=== PATIENT | female | born 1975 | race Two or more races ===

== ENCOUNTER 2019-04-30 12:21 | Inpatient (IN) | payer OTHER | END 2019-05-14 09:14 | disposition home or self-care (01) | LOC: Y3E 05-07 18:27 → YASAS 12:21 → Y3E 19:47 ==

== ENCOUNTER 2019-07-31 14:28 | Inpatient (IN) | payer OTHER ==
[2019-07-31 16:49] VITALS: BMI 19.5
--- NOTE | 2019-07-31 19:22 | HP ---
CIWA Score Nausea/Vomitin-No Nausea/No Vomiting Muscle Tremors: 3 Anxiety: 3 Agitation: 4-Moderately Restless Paroxysmal Sweats: 3 (Increased facial moisture) Orientation: 1-Uncertain about Date Tacttile Disturbances: 0-None Auditory Disturbances: 0-None Visual Disturbances: 0-None Headache: 0-None Present CIWA-Ar Total Score: 14 - Admission Criteria OASAS Guidelines: Admission for Medically Managed Detox: Requires at least one of the followin. CIWA greater than 12 2. Seizures within the past 24 hours 3. Delirium tremens within the past 24 hours 4. Hallucinations within the past 24 hours 5. Acute intervention needed for co occurring medical disorder 6. Acute intervention needed for co occurring psychiatric disorder 7. Severe withdrawal that cannot be handled at a lower level of care (continued vomiting, continued diarrhea, abnormal vital signs) requiring intravenous medication and/or fluids 8. Patient presents the following: CIWA greater than 12 (TEDDY: 0.190) Admission Criteria Met: Admission criteria met Admitting History and Physical - Past Medical History ...LMP: 02/16/19 - Smoking History Smoking history: Current every day smoker Have you smoked in the past 12 months: Yes Aproximately how many cigarettes per day: 20 - Alcohol/Substance Use Hx Alcohol Use: Yes Admission ROS S - HPI Chief Complaint: Here for alcohol problems. Allergies/Adverse Reactions: Allergies Allergy/AdvReac Type Severity Reaction Status Date / Time No Known Allergies Allergy Verified 04/30/19 16:37 History of Present Illness: Alcohol use since age 22. States drinking decreased to 2 pints/day. Last drink 2 -3 hours ago. Opiate use since age 23. Was using IV. Started Suboxone 8 mg TID on 07/17/19 and states has remained sober Has a Narcan Kit at home. Cocaine last used 07/17/19 K2 use began at age 35. Last use 07/30/19 Nicotine use since age 13. Now down to 2 cig/day. TEDDY: 0.190 UTox: + BUP HCG: Neg EK04/30/19: PMHx:Weight loss, hx CHF w/ coma (March -April 2018); Pneumonia 2 months ago @ [facility]. MHHx: Insomnia, Bipolar, depression, schizophrenia. Denies thoughts of harming self or others. States taking Gabapentin, Depakote, Seroquel (Last took meds in June 2019) Longest length of sobriety while in-patient for 2 months. Multiple overdoses. Last August 11, 2019. Seizures r/t alcohol withdrawal. Frequent blackouts. Patient Name: Sari Aragon Date: 1975 Address: [address] [place], [place] [id number] Sex: Female Rx Written Rx Dispensed Drug Quantity Days Supply Prescriber Name 07/27/2019 07/28/2019 buprenorphine-naloxone 8-2 mg sl film 21 7 Padilla Manzo MD 07/17/2019 07/19/2019 buprenorphine-naloxone 8-2 mg sl film 21 7 Padilla Manzo MD Exam Limitations: No Limitations - Ebola screening Have you traveled outside of the country in the last 21 days: No (N) Have you had contact with anyone from an Ebola affected area: No Have you been sick,other than usual withdrawal symptoms: No Do you have a fever: No - Review of Systems Constitutional: Diaphoresis, Changes in sleep (Difficulty falling and staying asleep.), Unintentional Wgt. Loss EENT: reports: Blurred Vision, Dental Problems (Missing most teeth. Can chew and swallow ok.) Respiratory: reports: Cough Cardiac: reports: No Symptoms Reported GI: reports: Indigestion (Heart burn) : reports: No Symptoms Reported Musculoskeletal: reports: No Symptoms Reported Integumentary: reports: Lesions (Scabs on knees), Other (Bump (R) head w/ tenderness x 2 days) Neuro: reports: No Symptoms reported Endocrine: reports: Increased Thirst, Change in Weight Hematology: reports: No Symptoms Reported Psychiatric: reports: Orientated x3 (Knows month and year. unsure of exact date) , Agitated, Anxious, Depressed (Denies thoughts of harming self or others) Patient History - Patient Medical History Hx Anemia: No Hx Asthma: Yes (on albuerol inhaler) Hx Chronic Obstructive Pulmonary Disease (COPD): No Hx Cancer: No Hx Cardiac Disorders: No Hx Congestive Heart Failure: No Hx Hypertension: No Hx Hypercholesterolemia: Yes (no med) Hx Pacemaker: No HX Cerebrovascular Accident: No Hx Seizures: No Hx Dementia: No Hx Diabetes: No Hx Gastrointestinal Disorders: No Hx Liver Disease: No Hx Genitourinary Disorders: No Hx Sexually Transmitted Disorders: No Hx Renal Disease (ESRD): No Hx Thyroid Disease: No Hx Human Immunodeficiency Virus (HIV): No Hx Hepatitis C: No Hx Depression: Yes Hx Suicide Attempt: Yes (cut wrist) Hx Bipolar Disorder: No Hx Schizophrenia: No - Patient Surgical History Past Surgical History: Yes Hx Orthopedic Surgery: Yes (surgery for fx of hemerous right) Anesthesia Reaction: No - PPD History Previous Implant?: Yes Documented Results: Negative w/proof Implanted On Prior R Admission?: Yes Date: 04/24/19 PPD to be Administered?: No - Reproductive History Patient is a Female of Child Bearing Age (11 -55 yrs old): Yes Last Menstrual Period: 02/16/19 (Irregular) Patient : No - Smoking Cessation Smoking history: Current every day smoker Have you smoked in the past 12 months: Yes Aproximately how many cigarettes per day: 2 (Has decreased amount) Cigars Per Day: 0 Hx Chewing Tobacco Use: No Initiated information on smoking cessation: Yes 'Breaking Loose' booklet given: 07/31/19 - Substance & Tx. History Hx Alcohol Use: Yes Hx Substance Use: Yes Substance Use Type: Alcohol, Cocaine, Heroin, Marijuana (K2), Opiates Hx Substance Use Treatment: Yes (detox, rehab, Currently on Suboxone) - Substances abused Heroin Substance route: Injection Frequency: Daily Amount used: 8 bags Age of first use: 23 Date of last use: 07/17/19 Alcohol Substance route: Oral Frequency: Daily Amount used: liquor- 3 pints Age of first use: 27 Date of last use: 07/31/19 Cocaine Substance route: Injection Frequency: Daily Amount used: 2 bags Age of first use: 14 Date of last use: 07/17/19 K2/Spice Substance route: Smoking Frequency: Daily Amount used: 1 bags Age of first use: 35 Date of last use: 07/31/19 Admission Physical Exam BHS - Vital Signs Vital Signs: Vital Signs - 24 hr 07/31/19 16:44 Temperature 98.8 F Pulse Rate 101 H Respiratory 18 Rate Blood Pressure 128/80 - Physical General Appearance: Yes: Mild Distress, Alcohol on Breath, Intoxicated (TEDDY: 0.190), Thin, Tremorous (Slight tremors) HEENTM: Yes: EOMI, Hearing grossly Normal, Normocephalic, Normal Voice, JOEL, Other (Thickened, whitish saliva) Respiratory: Yes: Wheezing (Insp/exp wheeze; Pulse Ox = 93 %), Other (Noisy, non -productive cough) Neck: Yes: No masses,lesions,Nodules, Supple Breast: Yes: Breast Exam Deferred Cardiology: Yes: Regular Rhythm, S1, S2, Tachycardia Abdominal: Yes: Non Tender, Flat, Soft, Increased Bowel Sounds Genitourinary: Yes: Within Normal Limits Back: Yes: Normal Inspection Musculoskeletal: Yes: full range of Motion, Gait Steady Extremities: Yes: Normal Capillary Refill (Peripheral pulses +), Tremors (Mild tremors) Neurological: Yes: java web application developer II-XII NML intact, Alert, Motor Strength 5/5 Integumentary: Yes: Normal Color, Warm, Diaphoresis (Increased facial moisture) Lymphatic: Yes: Within Normal Limits - Diagnostic (1) Cocaine use disorder, moderate, in early remission Current Visit: Yes Status: Acute (2) Asthma Current Visit: Yes Status: Chronic Qualifiers: Asthma severity: moderate Asthma persistence: unspecified Asthma complication type: with acute exacerbation Qualified Code(s): J45.901 - Unspecified asthma with (acute) exacerbation (3) Nicotine dependence Current Visit: Yes Status: Chronic Qualifiers: Nicotine product type: cigarettes Substance use status: uncomplicated Qualified Code(s): F17.210 - Nicotine dependence, cigarettes, uncomplicated Comment: . (4) Opioid dependence on agonist therapy Current Visit: Yes Status: Chronic Comment: On Suboxone. (5) Weight loss Current Visit: Yes Status: Chronic (6) Alcohol dependence with withdrawal, uncomplicated Current Visit: Yes Status: Acute Comment: w/intoxication Cleared for Admission S - Detox or Rehab [facility] Level of Care: Medically Managed Detox Regimen/Protocol: Librium Claeared for Rehab Admission: No Breathalyzer - Breathalyzer Breathalyzer: 0.190 Urine Drug Screen - Test Device Lot number: [id number] Expiration date: 03/15/21 - Control Is test valid?: Yes - Results Drug screen NEGATIVE: Yes Urine drug screen results: BUP-Suboxone Inpatient Rehab Admission - Rehab Decision to Admit Inpatient rehab admission?: No
[2019-07-31] MEDS ORDERED: MAGNESIUM CITRATE 300 ML BOTTLE PO PRN (19:59)
[2019-07-31] MEDS ORDERED: MAG HYDROX/AL HYDROX/SIMETH 30 ML UNIT-DOSE CUP PO PRN (19:59)
[2019-07-31] MEDS ORDERED: MAGNESIUM HYDROX 2400MG/30ML ORAL SUSPENSION 30 ML CUP PO PRN (19:59)
[2019-07-31] MEDS ORDERED: IBUPROFEN 400 MG TABLET (FP) PO PRN (19:59)
[2019-07-31] MEDS ORDERED: ACETAMINOPHEN 325 MG TABLET (FP) PO PRN ×2 (19:59)
[2019-07-31] MEDS ORDERED: BISMUTH SUBSALICYLATE 524 MG/30 ML UD PO PRN (19:59)
[2019-07-31] MEDS ORDERED: MENTHOL/PHENOL 1 EACH UD MM PRN (19:59)
[2019-07-31] MEDS ORDERED: NICOTINE POLACRILEX 2 MG GUM BUC PRN (19:59)
[2019-07-31] MEDS ORDERED: ALBUTEROL SO4 0.083% IH SOL 2.5 MG/3 ML VIAL.NEB. NEB PRN (20:05)
[2019-07-31] MEDS ORDERED: predniSONE 20 MG TABLET (UD) PO ONE (20:06)
[2019-07-31] MEDS ORDERED: ALBUTEROL SO4 0.083% IH SOL 2.5 MG/3 ML VIAL.NEB. NEB ONE (20:30)
[2019-07-31] MEDS: PANTOPRAZOLE 20 MG TABLET (FP) PO SCH (21:22)
[2019-07-31] MEDS: chlordiazePOXIDE HCL 25 MG CAPSULE PO SCH (21:22)
[2019-07-31] MEDS: guaiFENesin 200 MG/10 ML 10 ML UNIT-DOSE CUPS PO SCH (21:23)
[2019-07-31] MEDS: BUPRENORPHINE/NALOXONE 8 MG/2 MG FILM PACKET SL SCH (21:23)
[2019-07-31] MEDS: MELATONIN 5 MG TABLETS PO PRN (21:24)
[2019-07-31] MEDS: THIAMINE HCL 100 MG TABLET (FP) PO SCH (22:35)
[2019-08-01] MEDS: guaiFENesin 200 MG/10 ML 10 ML UNIT-DOSE CUPS PO SCH ×4 (02:38→19:48)
[2019-08-01] MEDS: BUPRENORPHINE/NALOXONE 8 MG/2 MG FILM PACKET SL SCH ×3 (05:57→21:15)
[2019-08-01] MEDS: chlordiazePOXIDE HCL 25 MG CAPSULE PO SCH ×3 (05:57→21:17)
[2019-08-01] MEDS: chlordiazePOXIDE HCL 10 MG CAPSULE PO PRN ×2 (08:49→16:53)
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
[2019-08-01] MEDS ORDERED: AZITHROMYCIN 500 MG TABLET PO SCH (10:00)
--- NOTE | 2019-08-01 10:23 | PN ---
BHS CIWA - CIWA Score Nausea/Vomitin-No Nausea/No Vomiting BHS Progress Note (SOAP) Objective: 08/01/19 10:22 Vital Signs Temperature 98.4 F 08/01/19 09:49 Pulse Rate 90 08/01/19 09:49 Respiratory Rate 16 08/01/19 09:49 Blood Pressure 144/91 08/01/19 09:49 O2 Sat by Pulse Oximetry (%) labs pending
[2019-08-01] MEDS: PANTOPRAZOLE 20 MG TABLET (FP) PO SCH (10:36)
[2019-08-01] MEDS: predniSONE 20 MG TABLET (UD) PO SCH (10:36)
[2019-08-01] MEDS: AZITHROMYCIN 250 MG TABLET PO SCH (10:36)
[2019-08-01] MEDS: PRENATAL VITAMINS W/ FOLIC ACID TABLET (FP) PO SCH (10:36)
[2019-08-01] MEDS: DIVALPROEX SODIUM 250 MG TABLET E.C. PO SCH ×2 (10:36→21:15)
[2019-08-01] MEDS: hydrOXYzine PAMOATE 50 MG CAPSULE (FP) PO PRN ×2 (10:40→16:54)
[2019-08-01 12:14] LABS: HEMATOCRIT 46.7 % (32.4-45.2); HEMOGLOBIN 16.1 GM/dL (10.7-15.3); MCH 35.5 pg (25.7-33.7); MCHC 34.5 g/dl (32.0-36.0); MEAN CELL VOLUME 102.8 fl (80-96); PLATELET COUNT 224 K/MM3 (134-434); RBC 4.54 M/mm3 (3.60-5.2); RDW 15.7 % (11.6-15.6); WHITE BLOOD COUNT 3.5 K/mm3 (4.0-10.0)
[2019-08-01 12:31] LABS: ALBUMIN 3.9 g/dl (3.4-5.0); BILIRUBIN,TOTAL 0.8 mg/dL (0.2-1); BLOOD UREA NITROGEN 11.4 mg/dL (7-18); CALCIUM 9.4 mg/dL (8.5-10.1); CREATININE 0.8 mg/dL (0.55-1.3); POTASSIUM 3.9 mmol/L (3.5-5.1)
--- NOTE | 2019-08-01 14:05 | PN ---
S CIWA - CIWA Score Nausea/Vomitin-No Nausea/No Vomiting Muscle Tremors: 3 Anxiety: 3 Agitation: 3 Paroxysmal Sweats: 2 Orientation: 0-Oriented Tacttile Disturbances: 0-None Auditory Disturbances: 0-None Visual Disturbances: 0-None Headache: 0-None Present CIWA-Ar Total Score: 11 BHS Progress Note (SOAP) Subjective: sweats teary eyes shakes restless agitation interrupted sleep Objective: 08/01/19 14:00 Vital Signs Temperature 98.4 F 08/01/19 12:58 Pulse Rate 79 08/01/19 12:58 Respiratory Rate 16 08/01/19 12:58 Blood Pressure 133/90 08/01/19 12:58 O2 Sat by Pulse Oximetry (%) Laboratory Tests 08/01/19 08/01/19 08:20 08:40 WBC 3.5 L RBC 4.54 Hgb 16.1 H Hct 46.7 H MCV 102.8 H MCH 35.5 H MCHC 34.5 RDW 15.7 H D Plt Count 224 D MPV 9.0 D Sodium 136 Potassium 3.9 Chloride 100 Carbon Dioxide 27 Anion Gap 10 BUN 11.4 Creatinine 0.8 Est GFR (CKD-EPI)AfAm 103.92 Est GFR (CKD-EPI)NonAf 89.66 Random Glucose 210 H Calcium 9.4 Total Bilirubin 0.8 AST 276 H ALT 167 H Alkaline Phosphatase 475 H Total Protein 8.0 Albumin 3.9 labs noted elevated liver enzymes d/c in tylenol aaox3 ambulating no acute distress repeat labs Assessment: 08/01/19 14:03 withdrawals sx Plan: continue detox increase fluids f/u pending labs
[2019-08-01] MEDS ORDERED: CYCLOBENZAPRINE HCL 5 MG TABLET PO PRN (20:46)
--- NOTE | 2019-08-01 20:46 | PN ---
BHS Progress Note Note: C/o muscle spasms. LFT's elevated. Will continue to hold gabapentin. CMP Sodium 136 mmol/L (136-145) 08/01/19 08:40 Potassium 3.9 mmol/L (3.5-5.1) 08/01/19 08:40 Chloride 100 mmol/L (98-107) 08/01/19 08:40 Carbon Dioxide 27 mmol/L (21-32) 08/01/19 08:40 Anion Gap 10 MMOL/L (8-16) 08/01/19 08:40 BUN 11.4 mg/dL (7-18) 08/01/19 08:40 Creatinine 0.8 mg/dL (0.55-1.3) 08/01/19 08:40 Est GFR (CKD-EPI)AfAm 103.92 08/01/19 08:40 Est GFR (CKD-EPI)NonAf 89.66 08/01/19 08:40 Random Glucose 210 mg/dL (74-106) H 08/01/19 08:40 Calcium 9.4 mg/dL (8.5-10.1) 08/01/19 08:40 Total Bilirubin 0.8 mg/dL (0.2-1) 08/01/19 08:40 AST 276 U/L (15-37) H 08/01/19 08:40 ALT 167 U/L (13-61) H 08/01/19 08:40 Alkaline Phosphatase 475 U/L (45-117) H 08/01/19 08:40 Total Protein 8.0 g/dl (6.4-8.2) 08/01/19 08:40 Albumin 3.9 g/dl (3.4-5.0) 08/01/19 08:40 Lungs w/o wheeze. Pulse Ox = 96 %. Vital Signs 08/01/19 08/01/19 08/01/19 12:58 17:17 20:43 Temperature 98.4 F 98.1 F 98.2 F Pulse Rate 79 89 93 H Respiratory 16 18 18 Rate Blood Pressure 133/90 119/90 140/68 Plan: Flexeril 5 mg PO TID prn.
[2019-08-01] MEDS: MELATONIN 5 MG TABLETS PO PRN (21:14)
[2019-08-01] MEDS: QUEtiapine FUMARATE 100 MG TABLET (FP) PO SCH (21:15)
[2019-08-01] MEDS: THIAMINE HCL 100 MG TABLET (FP) PO SCH (21:15)
[2019-08-02] MEDS: hydrOXYzine PAMOATE 50 MG CAPSULE (FP) PO PRN ×3 (00:55→18:14)
[2019-08-02] MEDS: chlordiazePOXIDE HCL 10 MG CAPSULE PO PRN ×3 (00:55→18:14)
[2019-08-02] MEDS: guaiFENesin 200 MG/10 ML 10 ML UNIT-DOSE CUPS PO SCH ×4 (05:08→21:10)
[2019-08-02] MEDS: chlordiazePOXIDE 5 MG CAPSULE PO SCH ×3 (05:32→21:09)
[2019-08-02] MEDS: BUPRENORPHINE/NALOXONE 8 MG/2 MG FILM PACKET SL SCH ×3 (05:33→21:10)
[2019-08-02] MEDS ORDERED: ONDANSETRON *ODT* 4 MG TABLET SL PRN (08:32)
--- NOTE | 2019-08-02 08:39 | PN ---
S CIWA - CIWA Score Nausea/Vomitin Muscle Tremors: 1-None Visible, but [place] Anxiety: 3 Agitation: 5 Paroxysmal Sweats: No Perspiration Orientation: 0-Oriented Tacttile Disturbances: 0-None Auditory Disturbances: 0-None Visual Disturbances: 0-None Headache: 0-None Present CIWA-Ar Total Score: 12 S Progress Note (SOAP) Subjective: Patient on modified Librium detox for alcohol withdrawal Patient c/o of anxiety , agitation, nausea , shakes Objective: 08/02/19 08:39 Vital Signs Temperature 97.9 F 08/02/19 06:26 Pulse Rate 100 H 08/02/19 06:26 Respiratory Rate 18 08/02/19 06:26 Blood Pressure 101/55 L 08/02/19 06:26 O2 Sat by Pulse Oximetry (%) Laboratory Last Values WBC 3.5 K/mm3 (4.0-10.0) L 08/01/19 08:20 RBC 4.54 M/mm3 (3.60-5.2) 08/01/19 08:20 Hgb 16.1 GM/dL (10.7-15.3) H 08/01/19 08:20 Hct 46.7 % (32.4-45.2) H 08/01/19 08:20 MCV 102.8 fl (80-96) H 08/01/19 08:20 MCH 35.5 pg (25.7-33.7) H 08/01/19 08:20 MCHC 34.5 g/dl (32.0-36.0) 08/01/19 08:20 RDW 15.7 % (11.6-15.6) H D 08/01/19 08:20 Plt Count 224 K/MM3 (134-434) D 08/01/19 08:20 MPV 9.0 fl (7.5-11.1) D 08/01/19 08:20 Sodium 136 mmol/L (136-145) 08/01/19 08:40 Potassium 3.9 mmol/L (3.5-5.1) 08/01/19 08:40 Chloride 100 mmol/L (98-107) 08/01/19 08:40 Carbon Dioxide 27 mmol/L (21-32) 08/01/19 08:40 Anion Gap 10 MMOL/L (8-16) 08/01/19 08:40 BUN 11.4 mg/dL (7-18) 08/01/19 08:40 Creatinine 0.8 mg/dL (0.55-1.3) 08/01/19 08:40 Est GFR (CKD-EPI)AfAm 103.92 08/01/19 08:40 Est GFR (CKD-EPI)NonAf 89.66 08/01/19 08:40 Random Glucose 210 mg/dL (74-106) H 08/01/19 08:40 Calcium 9.4 mg/dL (8.5-10.1) 08/01/19 08:40 Total Bilirubin 0.8 mg/dL (0.2-1) 08/01/19 08:40 AST 276 U/L (15-37) H 08/01/19 08:40 ALT 167 U/L (13-61) H 08/01/19 08:40 Alkaline Phosphatase 475 U/L (45-117) H 08/01/19 08:40 Total Protein 8.0 g/dl (6.4-8.2) 08/01/19 08:40 Albumin 3.9 g/dl (3.4-5.0) 08/01/19 08:40 POC Urine HCG, Qual Negative 07/31/19 19:44 Assessment: 08/02/19 08:40 Patient Aox3, agitated, anxious EENT WNL Poor dentition full ROM no gait disturbance, pacing on the unit no tremors present withdrawal sx Plan: Patient with hx of Hep C with elevated LFTs recommend changing to from librium detox to Ativan detox, patient refuse Ativan. Patient advised on the risk. Patient highly encourage to seek treatment fro Hep C. Patient is medication seeking, constantly makes threatening remarks when she does not received increase in Librium as she requested, even though her symptom do bot warrant increase. Withdrawal sx stable. Continue current librium protocol with no increase at this time repeat CMP continue to monitor
[2019-08-02] MEDS: DIVALPROEX SODIUM 250 MG TABLET E.C. PO SCH ×2 (10:04→21:10)
[2019-08-02] MEDS: AZITHROMYCIN 250 MG TABLET PO SCH (10:04)
[2019-08-02] MEDS: PRENATAL VITAMINS W/ FOLIC ACID TABLET (FP) PO SCH (10:04)
[2019-08-02] MEDS: PANTOPRAZOLE 20 MG TABLET (FP) PO SCH (10:05)
[2019-08-02] MEDS: predniSONE 20 MG TABLET (UD) PO SCH (10:05)
[2019-08-02] MEDS: NICOTINE 21 MG/24 HOURS TOPICAL PATCH TD SCH (10:20)
--- NOTE | 2019-08-02 12:59 | PN ---
Michael Progress Note Note: pt requesting gabapentin however, staff writer confirmed with her pharmacy that the last time she was prescribed her gabapentin was in December 2018. Pt no longer has refills and was required to see her PCP for continued prescription.
[2019-08-02] MEDS: BACLOFEN 10 MG TABLET (FP) PO SCH ×2 (13:18→21:10)
[2019-08-02] MEDS ORDERED: ALBUTEROL SO4 2.5/IPRATROPIUM 0.5 INH SOL 3 ML VIAL.NEB. NEB PRN (15:13)
[2019-08-02] MEDS: QUEtiapine FUMARATE 100 MG TABLET (FP) PO SCH (21:10)
[2019-08-02] MEDS: THIAMINE HCL 100 MG TABLET (FP) PO SCH (21:10)
[2019-08-02] MEDS: MELATONIN 5 MG TABLETS PO PRN (23:20)
[2019-08-03] MEDS ORDERED: chlordiazePOXIDE HCL 10 MG CAPSULE PO PRN
[2019-08-03] MEDS ORDERED: chlordiazePOXIDE HCL 10 MG CAPSULE PO SCH (05:00)
[2019-08-03] MEDS: BUPRENORPHINE/NALOXONE 8 MG/2 MG FILM PACKET SL SCH (05:56)
[2019-08-03] MEDS: guaiFENesin 200 MG/10 ML 10 ML UNIT-DOSE CUPS PO SCH ×2 (05:56→10:21)
[2019-08-03] MEDS: BACLOFEN 10 MG TABLET (FP) PO SCH (05:56)
[2019-08-03] MEDS: hydrOXYzine PAMOATE 50 MG CAPSULE (FP) PO PRN (05:59)
[2019-08-03 09:15] VITALS: BP 120/78; PULSE 95; TEMP 96.8
[2019-08-03 10:02] LABS: BASO % 0.4 % (0-2.0); EOS % 1.1 % (0-4.5); HEMOGLOBIN 14.4 GM/dL (10.7-15.3); LYMPH % 40.6 % (8-40); MCH 35.5 pg (25.7-33.7); MEAN CELL VOLUME 101.4 fl (80-96); MEAN PLT VOLUME 8.9 fl (7.5-11.1); MONO % 8.9 % (3.8-10.2); PLATELET COUNT 241 K/MM3 (134-434); RBC 4.05 M/mm3 (3.60-5.2); RDW 15.3 % (11.6-15.6); WHITE BLOOD COUNT 6.2 K/mm3 (4.0-10.0)
--- NOTE | 2019-08-03 10:10 | DS ---
[facility] Detox Discharge Summary Admission Date: 07/31/19 Discharge Date: 08/03/19 - History Present History: Alcohol Dependence, Cannabis Dependence, Cocaine Dependence - Physical Exam Results Vital Signs: Vital Signs Temperature 96.8 F L 08/03/19 09:14 Pulse Rate 95 H 08/03/19 09:14 Respiratory Rate 18 08/03/19 09:14 Blood Pressure 120/78 08/03/19 09:14 O2 Sat by Pulse Oximetry (%) Pertinent Admission Physical Exam Findings: pt arrived in withdrawals Laboratory Tests 07/31/19 08/01/19 08/01/19 19:44 08:20 08:20 WBC 3.5 L RBC 4.54 Hgb 16.1 H Hct 46.7 H MCV 102.8 H MCH 35.5 H MCHC 34.5 RDW 15.7 H D Plt Count 224 D MPV 9.0 D Absolute Neuts (auto) Neutrophils % Lymphocytes % Monocytes % Eosinophils % Basophils % Nucleated RBC % Sodium Potassium Chloride Carbon Dioxide Anion Gap BUN Creatinine Est GFR (CKD-EPI)AfAm Est GFR (CKD-EPI)NonAf Random Glucose Calcium Total Bilirubin AST ALT Alkaline Phosphatase Total Protein Albumin POC Urine HCG, Qual Negative RPR Titer HIV 1&2 Antibody Screen Negative HIV P24 Antigen Negative 08/01/19 08/01/19 08/03/19 08:20 08:40 08:15 WBC 6.2 RBC 4.05 Hgb 14.4 Hct 41.0 MCV 101.4 H MCH 35.5 H MCHC 35.0 RDW 15.3 Plt Count 241 MPV 8.9 Absolute Neuts (auto) 3.0 Neutrophils % 49.0 Lymphocytes % 40.6 H Monocytes % 8.9 Eosinophils % 1.1 Basophils % 0.4 Nucleated RBC % 0 Sodium 136 Potassium 3.9 Chloride 100 Carbon Dioxide 27 Anion Gap 10 BUN 11.4 Creatinine 0.8 Est GFR (CKD-EPI)AfAm 103.92 Est GFR (CKD-EPI)NonAf 89.66 Random Glucose 210 H Calcium 9.4 Total Bilirubin 0.8 AST 276 H ALT 167 H Alkaline Phosphatase 475 H Total Protein 8.0 Albumin 3.9 POC Urine HCG, Qual RPR Titer Nonreactive HIV 1&2 Antibody Screen HIV P24 Antigen labs noted aaox3 ambulating no acute distress no s/s of withdrawals - Treatment Hospital Course: Detox Protocol Followed, Detoxed Safely, Responded well, Discharged Condition Good, Rehab Referral Accepted Patient has Accepted a Rehab Referral to: rehab 3E inpatient rehab - Medication Discharge Medications: Ambulatory Orders Brexpiprazole [Rexulti] 1 mg PO DAILY 04/30/19 Divalproex Sodium [Depakote] 250 mg PO BID 04/30/19 Mirtazapine [Remeron -] 7.5 mg PO DAILY 04/30/19 Quetiapine Fumarate [Seroquel] 300 mg PO BID 07/31/19 - Diagnosis (1) Alcohol dependence with withdrawal, uncomplicated Current Visit: Yes Status: Chronic (2) Cannabis dependence Current Visit: Yes Status: Chronic (3) Cocaine dependence Current Visit: Yes Status: Chronic Qualifiers: Substance use status: uncomplicated Qualified Code(s): F14.20 - Cocaine dependence, uncomplicated (4) Asthma Current Visit: Yes Status: Chronic Qualifiers: Asthma severity: moderate Asthma persistence: unspecified Asthma complication type: unspecified Qualified Code(s): J45.909 - Unspecified asthma , uncomplicated (5) Nicotine dependence Current Visit: Yes Status: Chronic Qualifiers: Nicotine product type: cigarettes Substance use status: uncomplicated Qualified Code(s): F17.210 - Nicotine dependence, cigarettes, uncomplicated (6) Opioid dependence on agonist therapy Current Visit: Yes Status: Chronic (7) Weight loss Current Visit: Yes Status: Chronic (8) Bipolar disorder Current Visit: Yes Status: Ruled-out (9) Alcohol use disorder, severe, in early remission Current Visit: Yes Status: Acute (10) Cannabis dependence Current Visit: Yes Status: Acute (11) Cocaine dependence Current Visit: Yes Status: Acute Qualifiers: Substance use status: uncomplicated Qualified Code(s): F14.20 - Cocaine dependence, uncomplicated (12) Substance induced mood disorder Current Visit: No Status: Acute (13) Substance-induced sleep disorder Current Visit: No Status: Acute (14) Cannabis dependence Current Visit: No Status: Chronic (15) History of asthma Current Visit: No Status: Chronic (16) Hypercholesterolemia Current Visit: No Status: Chronic (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
[2019-08-03] MEDS: DIVALPROEX SODIUM 250 MG TABLET E.C. PO SCH (10:17)
[2019-08-03] MEDS: PANTOPRAZOLE 20 MG TABLET (FP) PO SCH (10:17)
[2019-08-03] MEDS: PRENATAL VITAMINS W/ FOLIC ACID TABLET (FP) PO SCH (10:17)
[2019-08-03] MEDS: predniSONE 20 MG TABLET (UD) PO SCH (10:17)
[2019-08-03] MEDS: AZITHROMYCIN 250 MG TABLET PO SCH (10:17)
[2019-08-03] MEDS: NICOTINE 21 MG/24 HOURS TOPICAL PATCH TD SCH (10:27)
[2019-08-03 10:31] LABS: ALBUMIN 3.3 g/dl (3.4-5.0); BILIRUBIN,TOTAL 0.6 mg/dL (0.2-1); BLOOD UREA NITROGEN 20.8 mg/dL (7-18); CALCIUM 9.7 mg/dL (8.5-10.1); CREATININE 0.7 mg/dL (0.55-1.3); TOT PROT 7.2 g/dl (6.4-8.2)
[2019-08-03 10:41] LABS: INR 0.99 (0.83-1.09); PROTHROMBIN TIME (PATIENT) 11.7 SEC (9.7-13.0)
--- NOTE | 2019-08-03 12:07 | PN ---
Psychiatric Progress Note Vital Signs: Vital Signs Period Temp Pulse Resp BP Sys/De Los Santos Pulse Ox Last 24 Hr 96.1 F-98.2 F 72-95 18-18 90-120/60-84 Date of Session: 08/03/19 Chief Complaint:: "i have anxiety." HPI: Patient admitted to [facility] detox for alcohol, opioid , cocaine and K2 dependence. ROS: Patient is coherent, alert + oriented X3. Current Medications: Active Medications Generic Name Dose Route Start Last Admin Trade Name Freq PRN Reason Stop Dose Admin Al Hydroxide/Mg Hydroxide 30 ml 07/31/19 19:59 Mylanta Oral Suspension - PO Q6H PRN DYSPEPSIA Albuterol/Ipratropium 1 amp 08/02/19 15:13 Duoneb - NEB Q4H PRN SHORTNESS OF BREATH Baclofen 10 mg 08/02/19 14:00 08/03/19 05:56 Lioresal - PO 10 mg TID ANGEL Administration Bismuth Subsalicylate 524 mg 07/31/19 19:59 Pepto-Bismol - PO Q1H PRN DIARRHEA Buprenorphine/Naloxone 1 each 07/31/19 22:00 08/03/19 05:56 Suboxone 8 Mg/2mg Sl Film - SL 1 each TID ANGEL Administration Chlordiazepoxide HCl 10 mg 08/03/19 00:00 08/03/19 10:17 Librium - PO 08/03/19 23:59 10 mg Q12H PRN Administration Signs/symptoms of Withdrawal Chlordiazepoxide HCl 10 mg 08/03/19 05:00 08/03/19 05:56 Librium - PO 08/03/19 21:01 10 mg Q8H ANGEL Administration Chlordiazepoxide HCl 10 mg 08/04/19 05:00 Librium - PO 08/04/19 05:01 ONCE ONE Cyclobenzaprine HCl 5 mg 08/01/19 20:46 Cyclobenzaprine Hcl PO TID PRN MUSCLE SPASMS Divalproex Sodium 250 mg 08/01/19 10:00 08/03/19 10:17 Depakote - PO 250 mg BID ANGEL Administration Eucalyptus/Menthol/Phenol/Sorbitol 1 each 07/31/19 19:59 Cepastat Lozenge - MM 08/06/19 20:00 Q4H PRN SORE THROAT Guaifenesin 10 ml 07/31/19 20:00 08/03/19 10:21 Robitussin - PO 08/03/19 19:59 Not Given Q6H ANGEL Hydroxyzine Pamoate 50 mg 08/01/19 09:12 08/03/19 05:59 Vistaril - PO 50 mg Q4H PRN Administration ANXIETY Ibuprofen 400 mg 07/31/19 19:59 Motrin - PO Q6H PRN PAIN LEVEL 6-10 Magnesium Citrate 300 ml 07/31/19 19:59 Citroma - PO Q48H PRN CONSTIPATION Magnesium Hydroxide 30 ml 07/31/19 19:59 Milk Of Magnesia - PO PRN PRN CONSTIPATION Melatonin 5 mg 07/31/19 22:00 08/02/19 23:20 Melatonin PO 5 mg HS PRN Administration INSOMNIA Nicotine 21 mg 08/02/19 10:15 08/03/19 10:27 Nicoderm Patch - TD 21 mg DAILY ANGEL Administration Nicotine Polacrilex 2 mg 07/31/19 19:59 Nicorette Gum - BUC Q2H PRN NICOTINE REPLACEMENT RX Pantoprazole Sodium 20 mg 07/31/19 20:30 08/03/19 10:17 Protonix - PO 08/07/19 20:29 20 mg DAILY ANGEL Administration Prednisone 40 mg 08/01/19 10:00 08/03/19 10:17 Deltasone - PO 08/05/19 09:59 40 mg DAILY ANGEL Administration Multivit/Folic Acid/Iron 1 tab 08/01/19 10:00 08/03/19 10:17 Vitamins (Sjr) - PO 1 tab DAILY ANGEL Administration Quetiapine Fumarate 100 mg 08/01/19 22:00 08/02/19 21:10 Seroquel - PO 100 mg HS ANGEL Administration Thiamine HCl 100 mg 07/31/19 22:00 08/02/19 21:10 Vitamin B1 - PO 100 mg HS ANGEL Administration Medication(s) Change(s): Yes. Current Side Effect: No Lab tests ordered: No Lab tests reviewed: Yes Provider note:: Patient reports feeling anxious and irritable throughout the day and states that it is unresolved with vistaril. Ms. Aragon reports past history of accepting gabapentin which she states is effective. Patient seen by Dr. Mitchell while in detox and was resumed on seroquel 100mg + Depakote 250mg BID. Patient was in rehab in april of 2019 and was prescribed seroquel 100mg HS + Depakote 250mg BID + Gabapentin 300mg TID with favorable effects. Will order gabapentin 300mg TID for anxiety. Benefits and side effects discussed. Verbal consent given. Total face to face time:: 25 Mental Status Exam - Mental Status Exam Alert and Oriented to: Time, Place, Person Cognitive Function: Good Patient Appearance: Well Groomed Mood: Anxious Affect: Mood Congruent Patient Behavior: Appropriate, Cooperative Speech Pattern: Appropriate Voice Loudness: Normal Thought Process: Goal Oriented Thought Disorder: Not Present Hallucinations: Denies Suicidal Ideation: Denies Homicidal Ideation: Denies Insight/Judgement: Poor Sleep: Fair Appetite: Fair Muscle strength/Tone: Normal Gait/Station: Normal Psychiatric Treatment Plan - Problem List (1) Cannabis dependence Comment: . (2) Cocaine dependence Qualifiers: Substance use status: uncomplicated Qualified Code(s): F14.20 - Cocaine dependence, uncomplicated Comment: . (3) Opioid dependence on agonist therapy Comment: On Suboxone. (4) Substance induced mood disorder Comment: . (6) Substance-induced anxiety disorder Comment: .. (7) Schizoaffective disorder Comment: ..
[2019-08-03] MEDS ORDERED: GABAPENTIN 300 MG CAPSULE (FP) PO SCH (14:00)
[2019-08-04] MEDS ORDERED: chlordiazePOXIDE HCL 10 MG CAPSULE PO ONE (05:00)
== END 2019-08-03 11:14 | disposition other institution (70) | DRG 773 ==
LOC: YASAS 14:28 → Y6N 20:07
PROVIDERS: ADMIT Allergy & Immunology; ATTEND Allergy & Immunology
PROC: HZ2ZZZZ Detoxification Services for Substance Abuse Treatment (ICD-10-PCS; principal; 2019-07-31)
DX: F10.230 Alcohol dependence with withdrawal, uncomplicated (principal); F11.20 Opioid dependence, uncomplicated; F14.20 Cocaine dependence, uncomplicated; F12.20 Cannabis dependence, uncomplicated; F17.210 Nicotine dependence, cigarettes, uncomplicated; F19.280 Other psychoactive substance dependence with psychoactive substance-induced anxiety disorder; F19.282 Other psychoactive substance dependence with psychoactive substance-induced sleep disorder; F19.24 Other psychoactive substance dependence with psychoactive substance-induced mood disorder; F25.9 Schizoaffective disorder, unspecified; J45.909 Unspecified asthma, uncomplicated; E78.00 Pure hypercholesterolemia, unspecified; R94.5 Abnormal results of liver function studies; R63.4 Abnormal weight loss; Z68.1 Body mass index [BMI] 19.9 or less, adult
CPT/HCPCS: 36415; 80053; 81025; 85025; 85027; 85610; 86593; 87389; J0475

== ENCOUNTER 2019-08-03 12:01 | Inpatient (IN) | payer OTHER ==
[2019-08-03] MEDS ORDERED: P-EPHED 60MG/TRIPROLIDI 2.5MG TABLET PO PRN (12:53)
[2019-08-03] MEDS ORDERED: ACETAMINOPHEN 325 MG TABLET (FP) PO PRN (12:53)
[2019-08-03] MEDS ORDERED: MAG HYDROX/AL HYDROX/SIMETH 30 ML UNIT-DOSE CUP PO PRN (12:53)
[2019-08-03] MEDS ORDERED: guaiFENesin 200 MG/10 ML 10 ML UNIT-DOSE CUPS PO PRN (12:53)
[2019-08-03] MEDS ORDERED: MAGNESIUM CITRATE 300 ML BOTTLE PO PRN (12:53)
[2019-08-03] MEDS ORDERED: MAGNESIUM HYDROX 2400MG/30ML ORAL SUSPENSION 30 ML CUP PO PRN (12:53)
[2019-08-03] MEDS ORDERED: LOPERAMIDE HCL 2 MG CAPSULE PO PRN (12:53)
[2019-08-03] MEDS ORDERED: MENTHOL/PHENOL 1 EACH UD MM PRN (12:53)
--- NOTE | 2019-08-03 12:53 | HP ---
[facility] Rehab Assess/Revision - Admission History Admitted to Rehab from[facility] - Findings Detox History & Physical reviewed: Yes Concur with findings: Yes Inpatient Rehab Admission - Rehab Decision to Admit Inpatient rehab admission?: Yes - Initial Determination Are CD services needed?: Yes Free of communicable disease: Yes Not in need of hospitalization: Yes - Rehab Admission Criteria Previous failed treatment: Yes Poor recovery environment: Yes Comorbidities: Yes Lacks judgement: Yes Patient is meeting Inpatient Rehab admission criteria:: Yes
[2019-08-03] MEDS: BUPRENORPHINE/NALOXONE 8 MG/2 MG FILM PACKET SL SCH ×2 (14:47→21:24)
[2019-08-03] MEDS: GABAPENTIN 300 MG CAPSULE (FP) PO SCH ×2 (14:48→21:24)
[2019-08-03] MEDS: BACLOFEN 10 MG TABLET (FP) PO SCH ×2 (14:50→21:24)
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
[2019-08-03] MEDS ORDERED: PT OWN MED DRAWER 7, Y5N ONE (21:22)
[2019-08-03] MEDS: THIAMINE HCL 100 MG TABLET (FP) PO SCH (21:24)
[2019-08-03] MEDS: MELATONIN 5 MG TABLETS PO PRN (21:24)
[2019-08-03] MEDS: QUEtiapine FUMARATE 100 MG TABLET (FP) PO SCH (21:24)
[2019-08-03] MEDS: DIVALPROEX SODIUM 250 MG TABLET E.C. PO SCH (21:24)
[2019-08-03] MEDS: hydrOXYzine PAMOATE 50 MG CAPSULE (FP) PO PRN (21:25)
[2019-08-04] MEDS ORDERED: PT OWN MED DRAWER 7, Y5N ONE ×4 (03:57→21:30)
[2019-08-04] MEDS: BUPRENORPHINE/NALOXONE 8 MG/2 MG FILM PACKET SL SCH ×3 (06:32→21:29)
[2019-08-04] MEDS: GABAPENTIN 300 MG CAPSULE (FP) PO SCH ×3 (06:32→21:28)
[2019-08-04] MEDS: BACLOFEN 10 MG TABLET (FP) PO SCH ×3 (06:32→21:30)
[2019-08-04] MEDS: DIVALPROEX SODIUM 250 MG TABLET E.C. PO SCH ×2 (09:25→21:28)
[2019-08-04] MEDS: PRENATAL VITAMINS W/ FOLIC ACID TABLET (FP) PO SCH (09:26)
[2019-08-04] MEDS: PANTOPRAZOLE 40 MG TABLET (FP) PO SCH (09:26)
[2019-08-04] MEDS: predniSONE 20 MG TABLET (UD) PO SCH (11:00)
[2019-08-04] MEDS: THIAMINE HCL 100 MG TABLET (FP) PO SCH (21:28)
[2019-08-04] MEDS: QUEtiapine FUMARATE 100 MG TABLET (FP) PO SCH (21:29)
[2019-08-05] MEDS ORDERED: PT OWN MED DRAWER 7, Y5N ONE ×4 (03:51→21:05)
[2019-08-05] MEDS: BACLOFEN 10 MG TABLET (FP) PO SCH ×3 (06:33→21:06)
[2019-08-05] MEDS: BUPRENORPHINE/NALOXONE 8 MG/2 MG FILM PACKET SL SCH ×3 (06:33→21:06)
[2019-08-05] MEDS: GABAPENTIN 300 MG CAPSULE (FP) PO SCH ×3 (06:33→21:06)
[2019-08-05] MEDS: PRENATAL VITAMINS W/ FOLIC ACID TABLET (FP) PO SCH (10:05)
[2019-08-05] MEDS: DIVALPROEX SODIUM 250 MG TABLET E.C. PO SCH ×2 (10:05→21:06)
[2019-08-05] MEDS: PANTOPRAZOLE 40 MG TABLET (FP) PO SCH (10:05)
[2019-08-05] MEDS: predniSONE 20 MG TABLET (UD) PO SCH (10:05)
[2019-08-05] MEDS: hydrOXYzine PAMOATE 50 MG CAPSULE (FP) PO PRN ×2 (10:06→21:09)
[2019-08-05] MEDS: MELATONIN 5 MG TABLETS PO PRN (21:06)
[2019-08-05] MEDS: QUEtiapine FUMARATE 100 MG TABLET (FP) PO SCH (21:06)
[2019-08-05] MEDS: THIAMINE HCL 100 MG TABLET (FP) PO SCH (21:06)
[2019-08-05 23:31] LABS: EPI CELLS 9.5 /HPF (0-5/HPF); HYALINE CASTS 2 /lpf (0-8); URINE APPEARANCE CLEAR; URINE BACTERIA 30.1 /hpf (NEGATIVE); URINE BILIRUBIN NEGATIVE (NEGATIVE); URINE COLOR YELLOW; URINE GLUCOSE (UA) NEGATIVE (NEGATIVE); URINE KETONE NEGATIVE (NEGATIVE); URINE LEUK ESTERASE TRACE (NEGATIVE); URINE NITRITE NEGATIVE (NEGATIVE); URINE PROTEIN NEGATIVE (NEGATIVE); URINE RBC 1 /hpf (0-4); URINE UROBILINOGEN 0.2 mg/dL (0.2-1.0); URINE WBC 4 /hpf (0-5)
[2019-08-06] MEDS ORDERED: PT OWN MED DRAWER 7, Y5N ONE ×5 (03:32→21:38)
[2019-08-06] MEDS: BACLOFEN 10 MG TABLET (FP) PO SCH ×3 (06:31→21:38)
[2019-08-06] MEDS: GABAPENTIN 300 MG CAPSULE (FP) PO SCH ×3 (06:31→21:35)
[2019-08-06] MEDS: BUPRENORPHINE/NALOXONE 8 MG/2 MG FILM PACKET SL SCH ×3 (06:31→21:36)
[2019-08-06] MEDS: DIVALPROEX SODIUM 250 MG TABLET E.C. PO SCH ×2 (09:36→21:34)
[2019-08-06] MEDS: PANTOPRAZOLE 40 MG TABLET (FP) PO SCH (09:36)
[2019-08-06] MEDS: hydrOXYzine PAMOATE 50 MG CAPSULE (FP) PO PRN ×2 (09:36→23:15)
[2019-08-06] MEDS: PRENATAL VITAMINS W/ FOLIC ACID TABLET (FP) PO SCH (09:38)
[2019-08-06] MEDS: predniSONE 20 MG TABLET (UD) PO SCH (09:38)
--- NOTE | 2019-08-06 11:53 | PN ---
[facility] Progress Note Note: Patient reports sleeping poorly despite taking Seroquel 100 mg/hs and Melatonin 5 mg/hs. Hypnotic properties of Belsomra discussed with patient and she agreed to try it. Belsomra 10 mg/hs ordered
[2019-08-06 12:13] LABS: BASO % 0.4 % (0-2.0); EOS % 1.4 % (0-4.5); HEMATOCRIT 42.8 % (32.4-45.2); HEMOGLOBIN 14.5 GM/dL (10.7-15.3); LYMPH % 39.4 % (8-40); MCH 35.4 pg (25.7-33.7); MCHC 33.8 g/dl (32.0-36.0); MEAN CELL VOLUME 104.6 fl (80-96); MEAN PLT VOLUME 9.1 fl (7.5-11.1); MONO % 11.5 % (3.8-10.2); NEUT % 47.3 % (42.8-82.8); PLATELET COUNT 304 K/MM3 (134-434); RDW 15.6 % (11.6-15.6); WHITE BLOOD COUNT 9.5 K/mm3 (4.0-10.0)
--- NOTE | 2019-08-06 12:18 | PN ---
[facility] Progress Note Note: Nurse Reports pt was seen last night wondering into other patient's room. Pt was seen by night THREAD CUTTER and labs including Ammonia level were ordered and results pending. Pt is s/p Detox [facility] since 08/03/19 and admitted to rehab same day. Alert o x 3. oob with steady gait. Pt requesting to be re-evaluated for psych medications for increased dose. Vital Signs - 24 hr 08/05/19 08/06/19 08/06/19 22:35 00:30 03:30 Temperature Pulse Rate 76 Respiratory 18 18 Rate Blood Pressure 133/85 08/06/19 06:52 Temperature 97.9 F Pulse Rate 82 Respiratory 18 Rate Blood Pressure 126/90 Laboratory Tests 08/05/19 22:35 Urine Color Yellow Urine Appearance Clear Urine pH 7.0 D Ur Specific Graff 1.025 Urine Protein Negative Urine Glucose (UA) Negative Urine Ketones Negative Urine Blood Negative Urine Nitrite Negative Urine Bilirubin Negative Urine Urobilinogen 0.2 Ur Leukocyte Esterase Trace Urine WBC (Auto) 4 Urine RBC (Auto) 1 Urine Casts (Auto) 2 U Epithel Cells (Auto) 9.5 Urine Bacteria (Auto) 30.1 CMP,CBC,Ammonia level results pending. A/P S/p Detox R/o insomnia R/o Hyperammonemia Follow up with lab results folow up with psych consult for re-evaluation
[2019-08-06 12:22] LABS: ALBUMIN 3.5 g/dl (3.4-5.0); BILIRUBIN,TOTAL 0.4 mg/dL (0.2-1); BLOOD UREA NITROGEN 26.3 mg/dL (7-18); CALCIUM 9.4 mg/dL (8.5-10.1); CREATININE 0.7 mg/dL (0.55-1.3); POTASSIUM 4.4 mmol/L (3.5-5.1); TOT PROT 7.5 g/dl (6.4-8.2)
[2019-08-06] MEDS: COLLOIDAL OATMEAL 1 BAR EACH TP PRN (14:38)
[2019-08-06] MEDS ORDERED: LACTULOSE 20 GM/30 ML UDC (FOR ORAL USE ONLY) PO ONE (15:29)
[2019-08-06] MEDS: QUEtiapine FUMARATE 100 MG TABLET (FP) PO SCH (21:34)
[2019-08-06] MEDS: THIAMINE HCL 100 MG TABLET (FP) PO SCH (21:34)
[2019-08-06] MEDS: LACTULOSE 20 GM/30 ML UDC (FOR ORAL USE ONLY) PO SCH (21:39)
[2019-08-06] MEDS: SUVOREXANT 10 MG TABLET PO PRN (21:39)
[2019-08-07] MEDS: IBUPROFEN 400 MG TABLET (FP) PO PRN (01:11)
[2019-08-07] MEDS ORDERED: PT OWN MED DRAWER 7, Y5N ONE ×4 (05:58→21:08)
[2019-08-07] MEDS: BACLOFEN 10 MG TABLET (FP) PO SCH ×3 (06:35→21:30)
[2019-08-07] MEDS: GABAPENTIN 300 MG CAPSULE (FP) PO SCH ×3 (06:35→21:32)
[2019-08-07] MEDS: LACTULOSE 20 GM/30 ML UDC (FOR ORAL USE ONLY) PO SCH ×3 (06:35→21:29)
[2019-08-07] MEDS: BUPRENORPHINE/NALOXONE 8 MG/2 MG FILM PACKET SL SCH ×3 (06:35→21:35)
[2019-08-07] MEDS: DIVALPROEX SODIUM 250 MG TABLET E.C. PO SCH ×2 (09:48→21:30)
[2019-08-07] MEDS: PRENATAL VITAMINS W/ FOLIC ACID TABLET (FP) PO SCH (09:49)
[2019-08-07] MEDS: PANTOPRAZOLE 40 MG TABLET (FP) PO SCH (09:49)
[2019-08-07] MEDS ORDERED: NICOTINE POLACRILEX 2 MG GUM BUC PRN (09:54)
[2019-08-07] MEDS: NICOTINE 21 MG/24 HOURS TOPICAL PATCH TD SCH (10:47)
[2019-08-07] MEDS: predniSONE 20 MG TABLET (UD) PO SCH (10:47)
[2019-08-07] MEDS ORDERED: ALBUTEROL SO4 0.083% IH SOL 2.5 MG/3 ML VIAL.NEB. NEB PRN (11:10)
--- NOTE | 2019-08-07 11:15 | PN ---
[facility] Progress Note (SOAP) Subjective: Patient is on 40mg of Prednisone. States she takes it every day except when she is getting high. Then she does not take it. States it was ordered in the ER several months ago when she had an asthma exacerbation and she continues to get prescriptions for it and it is not listed in her home medications. Objective: General: No apparent distress 08/07/19 11:13 Assessment: Physical: General: no apparent distress HEENTM: clear, edentulous Lungs: scattered rhonchi Heart: s1 s2 ABD: +BS Neuro: 2-12 intact 08/07/19 12:26 Plan: Called patient's pharmacy to determine if the prednisone is a standing prescription; the pharmacy states that they have never dispensed prednisone to this patient.
[2019-08-07] MEDS: ALBUTEROL SO4 8 GM HFA INHALER IH PRN (12:27)
--- NOTE | 2019-08-07 13:05 | PN ---
Psychiatric Progress Note Vital Signs: Vital Signs Period Temp Pulse Resp BP Sys/De [place] Santos Pulse Ox Last 24 Hr 98.1 F 84 16-18 115/74 Date of Session: 08/07/19 Chief Complaint:: " I sometimes feel irritable." HPI: Patient admitted to for alcohol, opioid, cocaine, and synthetic cannabis dependence. ROS: Patient is coherent, alert + oriented X3. Current Medications: Active Medications Generic Name Dose Route Start Last Admin Trade Name Freq PRN Reason Stop Dose Admin Acetaminophen 650 mg 08/03/19 12:53 Tylenol - PO Q4H PRN FEVER Al Hydroxide/Mg Hydroxide 30 ml 08/03/19 12:53 Mylanta Oral Suspension - PO Q6H PRN DYSPEPSIA Albuterol Sulfate 2 puff 08/07/19 11:09 08/07/19 12:27 Ventolin Hfa Inhaler - IH 2 puff Q4H PRN Administration SHORT OF BREATH/WHEEZING Albuterol Sulfate 1 amp 08/07/19 11:10 Ventolin 0.083% Nebulizer Soln - NEB Q4H PRN SHORT OF BREATH/WHEEZING Baclofen 10 mg 08/03/19 14:00 08/07/19 06:35 Lioresal - PO 10 mg TID AGNEL Administration Buprenorphine/Naloxone 1 each 08/03/19 14:00 08/07/19 06:35 Suboxone 8 Mg/2mg Sl Film - SL 08/10/19 13:59 1 each TID ANGEL Administration Colloidal Oatmeal 1 applic 08/06/19 11:40 08/06/19 14:38 Aveeno Soap - TP 1 applic DAILY PRN Administration HYGEINE Divalproex Sodium 250 mg 08/03/19 22:00 08/07/19 09:48 Depakote - PO 250 mg BID ANGEL Administration Eucalyptus/Menthol/Phenol/Sorbitol 1 each 08/03/19 12:53 Cepastat Lozenge - MM Q4H PRN SORE THROAT Gabapentin 300 mg 08/03/19 14:00 08/07/19 06:35 Neurontin - PO 300 mg TID ANGEL Administration Guaifenesin 10 ml 08/03/19 12:53 Robitussin - PO Q6H PRN COUGH Hydroxyzine Pamoate 50 mg 08/03/19 13:07 08/06/19 23:15 Vistaril - PO 50 mg Q4H PRN Administration FOR ITCHING Ibuprofen 400 mg 08/03/19 12:53 08/07/19 01:11 Motrin - PO 400 mg Q6H PRN Administration Pain Level 4-6 Lactulose 20 gm 08/06/19 22:00 08/07/19 06:35 Cephulac (Oral Use) PO 20 gm TID ANGEL Administration Loperamide HCl 4 mg 08/03/19 12:53 Imodium - PO Q6H PRN DIARRHEA Magnesium Citrate 300 ml 08/03/19 12:53 Citroma - PO Q48H PRN CONSTIPATION Magnesium Hydroxide 30 ml 08/03/19 12:53 Milk Of Magnesia - PO DAILY PRN CONSTIPATION Nicotine 21 mg 08/07/19 10:45 08/07/19 10:47 Nicoderm Patch - TD 21 mg DAILY ANGEL Administration Nicotine Polacrilex 2 mg 08/07/19 09:54 Nicorette Gum - BUC Q2H PRN NICOTINE REPLACEMENT RX Pantoprazole Sodium 40 mg 08/04/19 10:00 08/07/19 09:49 Protonix - PO 40 mg DAILY ANGEL Administration Prednisone 40 mg 08/07/19 10:00 08/07/19 10:47 Deltasone - PO 08/10/19 09:59 40 mg DAILY ANGEL Administration Multivit/Folic Acid/Iron 1 tab 08/04/19 10:00 08/07/19 09:49 Vitamins (Sjr) - PO 1 tab DAILY ANGEL Administration Pseudoephedrine/Triprolidine 1 combo 08/03/19 12:53 Actifed - PO TID PRN NASAL CONGESTION Quetiapine Fumarate 100 mg 08/03/19 22:00 08/06/19 21:34 Seroquel - PO 100 mg DAILY@2200 ANGEL Administration Suvorexant 10 mg 08/06/19 22:00 08/06/19 21:39 Belsomra PO 08/09/19 21:59 10 mg HS PRN Administration INSOMNIA Thiamine HCl 100 mg 08/03/19 22:00 08/06/19 21:34 Vitamin B1 - PO 100 mg HS ANGEL Administration Medication(s) Change(s): No. Current Side Effect: No Lab tests ordered: No Lab tests reviewed: Yes Provider note:: Patient calm, cooperative, coherent, alert + oriented X3. Patient appears less labile compared to her first few days on the rehab unit. Ms. Aragon reports feeling much better but at times reports feeling irritable. Labs reviewed and noted an elevated ammonial level of 97.60 on 08/06/19. As per nursing notes patient was observed wandering into another patient's room on the morning of 08/05/19. Ammonia level is currently being treated with lactulose. Due to patient's increased Ammonial level additional medications will not be added. In addition there is no clinical justification to increase medications at this time as patient is calmer and less irritable then previous days. 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 Since patient is coherent, alert + Oriented X3 , and observed ambulating on the unit medications will be continued at current dose. If ammonia level worsens and patient becomes disoriented should consider discontinuing or lowering seroquel + Depakote. Total face to face time:: 25 Mental Status Exam - Mental Status Exam Alert and Oriented to: Time, Place, Person Cognitive Function: Good Patient Appearance: Well Groomed Mood: Euthymic Affect: Mood Congruent Patient Behavior: Cooperative Speech Pattern: Appropriate Voice Loudness: Normal Thought Process: Goal Oriented Thought Disorder: Not Present Hallucinations: Denies Suicidal Ideation: Denies Homicidal Ideation: Denies Insight/Judgement: Poor Sleep: Fair Appetite: Fair Muscle strength/Tone: Normal Gait/Station: Normal Psychiatric Treatment Plan - Problem List (1) Cannabis dependence Current Visit: Yes Comment: . (2) Cocaine dependence Current Visit: Yes Qualifiers: Substance use status: uncomplicated Qualified Code(s): F14.20 - Cocaine dependence, uncomplicated Comment: . (3) Substance induced mood disorder Current Visit: Yes Comment: . (4) Substance-induced sleep disorder Current Visit: Yes (5) Schizoaffective disorder Current Visit: Yes Comment: .. (6) Substance-induced anxiety disorder Current Visit: Yes Comment: .. (7) Opioid dependence Current Visit: Yes (8) Opioid dependence on agonist therapy Current Visit: Yes Comment: On Suboxone.
[2019-08-07] MEDS: THIAMINE HCL 100 MG TABLET (FP) PO SCH (21:29)
[2019-08-07] MEDS: hydrOXYzine PAMOATE 50 MG CAPSULE (FP) PO PRN (21:30)
[2019-08-07] MEDS: SUVOREXANT 10 MG TABLET PO PRN (21:32)
[2019-08-07] MEDS: QUEtiapine FUMARATE 100 MG TABLET (FP) PO SCH (21:33)
[2019-08-08] MEDS: hydrOXYzine PAMOATE 50 MG CAPSULE (FP) PO PRN ×3 (03:01→21:38)
[2019-08-08] MEDS: BACLOFEN 10 MG TABLET (FP) PO SCH ×3 (06:40→21:38)
[2019-08-08] MEDS: GABAPENTIN 300 MG CAPSULE (FP) PO SCH ×3 (06:41→21:38)
[2019-08-08] MEDS: LACTULOSE 20 GM/30 ML UDC (FOR ORAL USE ONLY) PO SCH ×3 (06:41→21:38)
[2019-08-08] MEDS: BUPRENORPHINE/NALOXONE 8 MG/2 MG FILM PACKET SL SCH ×3 (06:41→21:41)
[2019-08-08] MEDS ORDERED: PT OWN MED DRAWER 7, Y5N ONE (09:18)
[2019-08-08] MEDS: DIVALPROEX SODIUM 250 MG TABLET E.C. PO SCH ×2 (09:53→21:38)
[2019-08-08] MEDS: NICOTINE 21 MG/24 HOURS TOPICAL PATCH TD SCH (09:53)
[2019-08-08] MEDS: PRENATAL VITAMINS W/ FOLIC ACID TABLET (FP) PO SCH (09:53)
[2019-08-08] MEDS: predniSONE 20 MG TABLET (UD) PO SCH (09:54)
[2019-08-08] MEDS: PANTOPRAZOLE 40 MG TABLET (FP) PO SCH (09:56)
[2019-08-08] MEDS: THIAMINE HCL 100 MG TABLET (FP) PO SCH (21:37)
[2019-08-08] MEDS: QUEtiapine FUMARATE 100 MG TABLET (FP) PO SCH (21:38)
[2019-08-08] MEDS: SUVOREXANT 10 MG TABLET PO PRN (21:41)
[2019-08-09] MEDS: hydrOXYzine PAMOATE 50 MG CAPSULE (FP) PO PRN ×3 (03:45→19:47)
[2019-08-09] MEDS: LACTULOSE 20 GM/30 ML UDC (FOR ORAL USE ONLY) PO SCH ×3 (06:41→21:40)
[2019-08-09] MEDS: GABAPENTIN 300 MG CAPSULE (FP) PO SCH ×3 (06:42→21:40)
[2019-08-09] MEDS: BUPRENORPHINE/NALOXONE 8 MG/2 MG FILM PACKET SL SCH ×3 (06:42→21:42)
[2019-08-09] MEDS: BACLOFEN 10 MG TABLET (FP) PO SCH ×3 (06:42→21:40)
[2019-08-09] MEDS: PANTOPRAZOLE 40 MG TABLET (FP) PO SCH (09:46)
[2019-08-09] MEDS: PRENATAL VITAMINS W/ FOLIC ACID TABLET (FP) PO SCH (09:46)
[2019-08-09] MEDS: predniSONE 20 MG TABLET (UD) PO SCH (09:46)
[2019-08-09] MEDS: DIVALPROEX SODIUM 250 MG TABLET E.C. PO SCH ×2 (09:46→21:40)
[2019-08-09] MEDS: NICOTINE 21 MG/24 HOURS TOPICAL PATCH TD SCH (09:47)
--- NOTE | 2019-08-09 11:27 | PN ---
[facility] Progress Note Note: [facility] renewed.
[2019-08-09] MEDS: THIAMINE HCL 100 MG TABLET (FP) PO SCH (21:39)
[2019-08-09] MEDS: QUEtiapine FUMARATE 100 MG TABLET (FP) PO SCH (21:40)
[2019-08-09] MEDS: SUVOREXANT 10 MG TABLET PO PRN (21:41)
[2019-08-10] MEDS: LACTULOSE 20 GM/30 ML UDC (FOR ORAL USE ONLY) PO SCH ×3 (06:24→21:43)
[2019-08-10] MEDS: BUPRENORPHINE/NALOXONE 8 MG/2 MG FILM PACKET SL SCH ×3 (06:24→21:44)
[2019-08-10] MEDS: BACLOFEN 10 MG TABLET (FP) PO SCH ×3 (06:24→21:43)
[2019-08-10] MEDS: GABAPENTIN 300 MG CAPSULE (FP) PO SCH ×3 (06:24→21:43)
[2019-08-10] MEDS ORDERED: PT OWN MED DRAWER 7, Y5N ONE (08:11)
[2019-08-10] MEDS: DIVALPROEX SODIUM 250 MG TABLET E.C. PO SCH ×2 (09:38→21:44)
[2019-08-10] MEDS: NICOTINE 21 MG/24 HOURS TOPICAL PATCH TD SCH (09:38)
[2019-08-10] MEDS: PANTOPRAZOLE 40 MG TABLET (FP) PO SCH (09:39)
[2019-08-10] MEDS: predniSONE 20 MG TABLET (UD) PO SCH (09:39)
[2019-08-10] MEDS: PRENATAL VITAMINS W/ FOLIC ACID TABLET (FP) PO SCH (09:39)
--- NOTE | 2019-08-10 14:30 | PN ---
[facility] Progress Note Note: Patient evaluated regarding prednisone treatment which she says she takes when she binge smokes PCP. Patient has been receiving treatment with prednisone 40mg daily. Patient also has hx of chronic nicotine use. ROS: denies sob, chest pain, dizziness. + intermittent productive cough, mainly at night. + dry crack skin of feet with pruritis Laboratory Tests 08/05/19 08/06/19 08/06/19 22:35 09:00 09:00 WBC 9.5 RBC 4.10 Hgb 14.5 Hct 42.8 MCV 104.6 H MCH 35.4 H MCHC 33.8 RDW 15.6 Plt Count 304 D MPV 9.1 Absolute Neuts (auto) 4.5 Neutrophils % 47.3 Lymphocytes % 39.4 Monocytes % 11.5 H Eosinophils % 1.4 Basophils % 0.4 Nucleated RBC % 0 Sodium 143 Potassium 4.4 Chloride 108 H Carbon Dioxide 26 Anion Gap 9 BUN 26.3 H Creatinine 0.7 Est GFR (CKD-EPI)AfAm 122.13 Est GFR (CKD-EPI)NonAf 105.37 Random Glucose 91 Calcium 9.4 Total Bilirubin 0.4 AST 188 H ALT 251 H Alkaline Phosphatase 258 H Ammonia Total Protein 7.5 Albumin 3.5 Urine Color Yellow Urine Appearance Clear Urine pH 7.0 D Ur Specific [place] 1.025 Urine Protein Negative Urine Glucose (UA) Negative Urine Ketones Negative Urine Blood Negative Urine Nitrite Negative Urine Bilirubin Negative Urine Urobilinogen 0.2 Ur Leukocyte Esterase Trace Urine WBC (Auto) 4 Urine RBC (Auto) 1 Urine Casts (Auto) 2 U Epithel Cells (Auto) 9.5 Urine Bacteria (Auto) 30.1 08/06/19 08/08/19 09:00 09:06 WBC RBC Hgb Hct MCV MCH MCHC RDW Plt Count MPV Absolute Neuts (auto) Neutrophils % Lymphocytes % Monocytes % Eosinophils % Basophils % Nucleated RBC % Sodium Potassium Chloride Carbon Dioxide Anion Gap BUN Creatinine Est GFR (CKD-EPI)AfAm Est GFR (CKD-EPI)NonAf Random Glucose Calcium Total Bilirubin AST ALT Alkaline Phosphatase Ammonia 97.60 H 75.00 H Total Protein Albumin Urine Color Urine Appearance Urine pH Ur Specific [place] Urine Protein Urine Glucose (UA) Urine Ketones Urine Blood Urine Nitrite Urine Bilirubin Urine Urobilinogen Ur Leukocyte Esterase Urine WBC (Auto) Urine RBC (Auto) Urine Casts (Auto) U Epithel Cells (Auto) Urine Bacteria (Auto) Vital Signs Temperature 97.8 F 08/10/19 06:53 Pulse Rate 99 H 08/10/19 06:53 Respiratory Rate 18 08/10/19 06:53 Blood Pressure 121/82 08/10/19 06:53 O2 Sat by Pulse Oximetry (%) PE alert and oriented x 3 skin warm and dry +perrla, eoms intact bl car s1s2, rrr resp cta bl, no wheezes or rales ext no tremors, +dry cracked heels amb ad kojo A/P: PCP dependence hx of asthma/tobacco use athletes foot elevated ammonia levels will start prednisone titration, 30mg in am then reduce by 10mg daily unit d/c continue inhalers start tinactin for athletes foot repeat ammonia level on 08/13/19
[2019-08-10] MEDS: QUEtiapine FUMARATE 100 MG TABLET (FP) PO SCH (21:43)
[2019-08-10] MEDS: SUVOREXANT 10 MG TABLET PO PRN (21:43)
[2019-08-10] MEDS: THIAMINE HCL 100 MG TABLET (FP) PO SCH (21:44)
[2019-08-10] MEDS: TOLNAFTATE 1% CREAM 15 GM TUBE TP SCH (21:46)
[2019-08-11] MEDS: hydrOXYzine PAMOATE 50 MG CAPSULE (FP) PO PRN ×2 (02:08→21:36)
[2019-08-11] MEDS: IBUPROFEN 400 MG TABLET (FP) PO PRN ×3 (02:09→22:51)
[2019-08-11] MEDS: LACTULOSE 20 GM/30 ML UDC (FOR ORAL USE ONLY) PO SCH ×3 (06:40→21:36)
[2019-08-11] MEDS: BUPRENORPHINE/NALOXONE 8 MG/2 MG FILM PACKET SL SCH ×3 (06:40→21:36)
[2019-08-11] MEDS: BACLOFEN 10 MG TABLET (FP) PO SCH ×3 (06:40→21:36)
[2019-08-11] MEDS: GABAPENTIN 300 MG CAPSULE (FP) PO SCH ×3 (06:40→21:36)
[2019-08-11] MEDS: NICOTINE 21 MG/24 HOURS TOPICAL PATCH TD SCH (09:32)
[2019-08-11] MEDS: ALBUTEROL SO4 8 GM HFA INHALER IH PRN (09:33)
[2019-08-11] MEDS: PRENATAL VITAMINS W/ FOLIC ACID TABLET (FP) PO SCH (09:34)
[2019-08-11] MEDS: DIVALPROEX SODIUM 250 MG TABLET E.C. PO SCH ×2 (09:34→21:36)
[2019-08-11] MEDS: PANTOPRAZOLE 40 MG TABLET (FP) PO SCH (09:34)
[2019-08-11] MEDS: TOLNAFTATE 1% CREAM 15 GM TUBE TP SCH ×2 (09:36→21:37)
[2019-08-11] MEDS ORDERED: PT OWN MED DRAWER 7, Y5N ONE ×2 (09:36→23:04)
[2019-08-11] MEDS ORDERED: predniSONE 10 MG TABLET (UD) PO SCH (10:00)
[2019-08-11] MEDS ORDERED: ALBUTEROL SO4 0.083% IH SOL 2.5 MG/3 ML VIAL.NEB. NEB PRN (15:24)
[2019-08-11] MEDS: THIAMINE HCL 100 MG TABLET (FP) PO SCH (21:36)
[2019-08-11] MEDS: QUEtiapine FUMARATE 100 MG TABLET (FP) PO SCH (21:36)
[2019-08-11] MEDS: SUVOREXANT 10 MG TABLET PO PRN (21:38)
[2019-08-12] MEDS: BACLOFEN 10 MG TABLET (FP) PO SCH ×3 (06:05→21:25)
[2019-08-12] MEDS: BUPRENORPHINE/NALOXONE 8 MG/2 MG FILM PACKET SL SCH ×3 (06:05→21:28)
[2019-08-12] MEDS: LACTULOSE 20 GM/30 ML UDC (FOR ORAL USE ONLY) PO SCH ×3 (06:05→21:25)
[2019-08-12] MEDS: GABAPENTIN 300 MG CAPSULE (FP) PO SCH ×3 (06:05→21:25)
[2019-08-12] MEDS: IBUPROFEN 400 MG TABLET (FP) PO PRN ×2 (06:51→13:11)
[2019-08-12] MEDS: PANTOPRAZOLE 40 MG TABLET (FP) PO SCH (09:39)
[2019-08-12] MEDS: PRENATAL VITAMINS W/ FOLIC ACID TABLET (FP) PO SCH (09:39)
[2019-08-12] MEDS: DIVALPROEX SODIUM 250 MG TABLET E.C. PO SCH ×2 (09:39→21:25)
[2019-08-12] MEDS: NICOTINE 21 MG/24 HOURS TOPICAL PATCH TD SCH (09:40)
[2019-08-12] MEDS: TOLNAFTATE 1% CREAM 15 GM TUBE TP SCH ×2 (09:40→21:25)
[2019-08-12] MEDS ORDERED: AZITHROMYCIN 250 MG TABLET PO ONE (09:49)
--- NOTE | 2019-08-12 09:53 | PN ---
[facility] Progress Note Note: running temp,coughing with yellowish mucous not in distress,lung expiratory wheezing history of asthma on albuterol inhaler and prednisone Vital Signs Temperature 102.5 F H 08/12/19 08:46 Pulse Rate 121 H 08/12/19 08:46 Respiratory Rate 20 08/12/19 08:46 Blood Pressure 116/66 08/12/19 08:46 O2 Sat by Pulse Oximetry (%) impression acute bronchitis r/o pneumonia asthma treatment zithromax 500 mgs po now then 250 mgs po daily for 3 days albutrol inhaler cont prednisone taper chest xray in am cbc,cmp,ammonia level in am close monitoring
[2019-08-12] MEDS ORDERED: predniSONE 20 MG TABLET (UD) PO SCH (10:00)
--- NOTE | 2019-08-12 13:27 | PN ---
[facility] Progress Note Note: patient has withnessed fall with head injury alert,oriented x3 bp 113/78,p103,r20,t99.9 pulse oxymetry 98% pain over the vertex no bleeding pupil equal and react to light no neck pain lung expiratory wheezing heart normal heart sound,s1s2, no calf tenderness impression head injury witnessed history of fall asthma acute bronchitis r/o pneumonia treatment to er for evaluation and treatment patient refused treatment ,er evaluation,refused at of head initiate fall protocol 1 fall precaution close monitoring
[2019-08-12] MEDS: THIAMINE HCL 100 MG TABLET (FP) PO SCH (21:24)
[2019-08-12] MEDS: QUEtiapine FUMARATE 100 MG TABLET (FP) PO SCH (21:25)
[2019-08-12] MEDS: hydrOXYzine PAMOATE 50 MG CAPSULE (FP) PO PRN (21:25)
[2019-08-13] MEDS: BUPRENORPHINE/NALOXONE 8 MG/2 MG FILM PACKET SL SCH ×3 (06:06→21:22)
[2019-08-13] MEDS: BACLOFEN 10 MG TABLET (FP) PO SCH ×3 (06:07→21:20)
[2019-08-13] MEDS: LACTULOSE 20 GM/30 ML UDC (FOR ORAL USE ONLY) PO SCH ×3 (06:07→21:20)
[2019-08-13] MEDS: GABAPENTIN 300 MG CAPSULE (FP) PO SCH ×3 (06:07→21:21)
[2019-08-13] MEDS ORDERED: PT OWN MED DRAWER 7, Y5N ONE ×2 (08:53→09:41)
[2019-08-13] MEDS: NICOTINE 21 MG/24 HOURS TOPICAL PATCH TD SCH (09:38)
[2019-08-13] MEDS: DIVALPROEX SODIUM 250 MG TABLET E.C. PO SCH ×2 (09:39→21:20)
[2019-08-13] MEDS: PANTOPRAZOLE 40 MG TABLET (FP) PO SCH (09:39)
[2019-08-13] MEDS: TOLNAFTATE 1% CREAM 15 GM TUBE TP SCH ×2 (09:39→21:22)
[2019-08-13] MEDS: IBUPROFEN 400 MG TABLET (FP) PO PRN (09:40)
[2019-08-13] MEDS: PRENATAL VITAMINS W/ FOLIC ACID TABLET (FP) PO SCH (09:40)
[2019-08-13] MEDS ORDERED: predniSONE 10 MG TABLET (UD) PO SCH (10:00)
[2019-08-13] MEDS: AZITHROMYCIN 250 MG TABLET PO SCH (10:29)
--- NOTE | 2019-08-13 15:01 | PN ---
Psychiatric Progress Note Vital Signs: Vital Signs Period Temp Pulse Resp BP Sys/[place] Pulse Ox Last 24 Hr 97.8 F-98.7 F 96-110 16-18 103-115/69-78 Date of Session: 08/13/19 Chief Complaint:: " I don't sleep at night." HPI: Day 14 of hospitalization at [facility] (detoxication + rehabilitation combined). Patient is a 44 y/o female, now at [address], addressing INOCENCIO issues (alcohol, cocaine, heroin, cannabis/k2, nicotine) co- morbid with schizoaffective disorder. Hospital course is remarkable for report of frequent falls and refractory insomnia. ROS: Patient is observed as neatly groomed, ambulatory and cognitively intact. Current Medications: Active Medications Generic Name Dose Route Start Last Admin Trade Name Freq PRN Reason Stop Dose Admin Al Hydroxide/Mg Hydroxide 30 ml 08/03/19 12:53 Mylanta Oral Suspension - PO Q6H PRN DYSPEPSIA Albuterol Sulfate 2 puff 08/07/19 11:09 08/11/19 09:33 Ventolin Hfa Inhaler - IH 2 puff Q4H PRN Administration SHORT OF BREATH/WHEEZING Albuterol Sulfate 1 amp 08/11/19 15:24 Ventolin 0.083% Nebulizer Soln - NEB Q6H PRN SHORT OF BREATH/WHEEZING Azithromycin 250 mg 08/13/19 10:00 08/13/19 10:29 Zithromax - PO 250 mg DAILY ANGEL Administration Baclofen 10 mg 08/03/19 14:00 08/13/19 13:54 Lioresal - PO 10 mg TID ANGEL Administration Buprenorphine/Naloxone 1 each 08/09/19 14:00 08/13/19 13:54 Suboxone 8 Mg/2mg Sl Film - SL 08/15/19 13:59 1 each TID ANGEL Administration Colloidal Oatmeal 1 applic 08/06/19 11:40 08/06/19 14:38 Aveeno Soap - TP 1 applic DAILY PRN Administration HYGEINE Divalproex Sodium 250 mg 08/03/19 22:00 08/13/19 09:39 Depakote - PO 250 mg BID ANGEL Administration Eucalyptus/Menthol/Phenol/Sorbitol 1 each 08/03/19 12:53 Cepastat Lozenge - MM Q4H PRN SORE THROAT Gabapentin 300 mg 08/03/19 14:00 08/13/19 13:54 Neurontin - PO 300 mg TID ANGEL Administration Guaifenesin 10 ml 08/03/19 12:53 Robitussin - PO Q6H PRN COUGH Hydroxyzine Pamoate 50 mg 08/03/19 13:07 08/12/19 21:25 Vistaril - PO 50 mg Q4H PRN Administration FOR ITCHING Ibuprofen 400 mg 08/03/19 12:53 08/13/19 09:40 Motrin - PO 400 mg Q6H PRN Administration Pain Level 4-6 Lactulose 20 gm 08/06/19 22:00 08/13/19 13:54 Cephulac (Oral Use) PO 20 gm TID ANGEL Administration Loperamide HCl 4 mg 08/03/19 12:53 Imodium - PO Q6H PRN DIARRHEA Magnesium Citrate 300 ml 08/03/19 12:53 Citroma - PO Q48H PRN CONSTIPATION Magnesium Hydroxide 30 ml 08/03/19 12:53 Milk Of Magnesia - PO DAILY PRN CONSTIPATION Nicotine 21 mg 08/07/19 10:45 08/13/19 09:38 Nicoderm Patch - TD 21 mg DAILY ANGEL Administration Nicotine Polacrilex 2 mg 08/07/19 09:54 08/09/19 19:48 Nicorette Gum - BUC 2 mg Q2H PRN Administration NICOTINE REPLACEMENT RX Pantoprazole Sodium 40 mg 08/04/19 10:00 08/13/19 09:39 Protonix - PO 40 mg DAILY ANGEL Administration Multivit/Folic Acid/Iron 1 tab 08/04/19 10:00 08/13/19 09:40 Vitamins (Sjr) - PO 1 tab DAILY ANGEL Administration Pseudoephedrine/Triprolidine 1 combo 08/03/19 12:53 Actifed - PO TID PRN NASAL CONGESTION Quetiapine Fumarate 100 mg 08/03/19 22:00 08/12/19 21:25 Seroquel - PO 100 mg DAILY@2200 ANGEL Administration Thiamine HCl 100 mg 08/03/19 22:00 08/12/19 21:24 Vitamin B1 - PO 100 mg HS ANGEL Administration Tolnaftate 1 applic 08/10/19 22:00 08/13/19 09:39 Tinactin 1% Cream - TP 1 applic BID ANGEL Administration Medication(s) Change(s): Medications are reviewed. Added to regimen : mirtazapine 7.5 mg po hs. Side effects/benefits discussed with the patient. Seroquel is lowered to 50 mg po hs. Patient is agreeable with this strategy. Current Side Effect: No (questionable) Lab tests ordered: No (repeat ammonia level is suggested; ) Lab tests reviewed: Yes (repeat of EKG is also suggested) Provider note:: Chart reviewed. Multidisciplinary notes (including psychiatric consultants Dr Mitchell + ANJEL Mata's notes) are read and appreciated. Patient is re-evaluated with medical students in attendance (with patient's verbal authorization). Ms Aragon is cooperative, pleasant and well-controlled. Good historian. No evidence of psychosis or affective dysregulation. Patient verbalizes motivation for treatment. States that she will focus her energies on maintatining sobriety. " Smoking K2 is not a smart thing to do. This drugs makes me believe that everybody is against me and, on two occasions, I even passed out and fell on a subway platform. Thanks God, I was saved by near-by riders." Mental status is stable. See MSE report for details. Patient is at baseline. Total face to face time:: 35 Mental Status Exam - Mental Status Exam Alert and Oriented to: Time, Place, Person Cognitive Function: Good Patient Appearance: Well Groomed Mood: Apprehensive, Hopeful Affect: Appropriate, Normal Range Patient Behavior: Appropriate, Cooperative Speech Pattern: Clear, Appropriate Voice Loudness: Normal Thought Process: Goal Oriented Thought Disorder: Paranoid Ideation (mild ideation; feels that people are talking negatively about her) Hallucinations: Denies Suicidal Ideation: Denies Homicidal Ideation: Denies Insight/Judgement: Fair Sleep: Poorly, Difficulty falling asleep Appetite: Good Gait/Station: Normal Psychiatric Treatment Plan - Problem List (1) Insomnia Current Visit: Yes Comment: . (2) Schizoaffective disorder Current Visit: Yes Comment: . (3) Opioid dependence on agonist therapy Current Visit: Yes Comment: On Suboxone. (4) Cannabis dependence Current Visit: Yes Comment: . (5) Alcohol use disorder Current Visit: Yes Comment: . (6) Cocaine dependence Current Visit: Yes Qualifiers: Substance use status: uncomplicated Qualified Code(s): F14.20 - Cocaine dependence, uncomplicated Comment: . (7) Nicotine dependence Current Visit: Yes Qualifiers: Nicotine product type: cigarettes Substance use status: uncomplicated Qualified Code(s): F17.210 - Nicotine dependence, cigarettes, uncomplicated Comment: . (8) Substance induced mood disorder Current Visit: Yes Comment: .
[2019-08-13] MEDS: THIAMINE HCL 100 MG TABLET (FP) PO SCH (21:20)
[2019-08-13] MEDS: hydrOXYzine PAMOATE 50 MG CAPSULE (FP) PO PRN (21:20)
[2019-08-13] MEDS: MIRTAZAPINE 15 MG TABLET (FP) PO SCH (21:24)
[2019-08-13] MEDS: QUEtiapine FUMARATE 50 MG TABLET PO SCH (21:24)
[2019-08-14] MEDS: IBUPROFEN 400 MG TABLET (FP) PO PRN (00:29)
[2019-08-14] MEDS: hydrOXYzine PAMOATE 50 MG CAPSULE (FP) PO PRN ×2 (02:27→21:23)
[2019-08-14] MEDS: GABAPENTIN 300 MG CAPSULE (FP) PO SCH ×3 (06:12→21:19)
[2019-08-14] MEDS: LACTULOSE 20 GM/30 ML UDC (FOR ORAL USE ONLY) PO SCH ×3 (06:12→21:19)
[2019-08-14] MEDS: BACLOFEN 10 MG TABLET (FP) PO SCH ×3 (06:12→21:19)
[2019-08-14] MEDS: BUPRENORPHINE/NALOXONE 8 MG/2 MG FILM PACKET SL SCH ×3 (06:13→21:21)
[2019-08-14] MEDS ORDERED: PT OWN MED DRAWER 7, Y5N ONE ×2 (08:33→21:22)
--- NOTE | 2019-08-14 09:26 | PN ---
[facility] Progress Note Note: CXR reviewed; no evidence of pulmonary disease.
[2019-08-14] MEDS: PRENATAL VITAMINS W/ FOLIC ACID TABLET (FP) PO SCH (10:05)
[2019-08-14] MEDS: DIVALPROEX SODIUM 250 MG TABLET E.C. PO SCH ×2 (10:05→21:18)
[2019-08-14] MEDS: NICOTINE 21 MG/24 HOURS TOPICAL PATCH TD SCH (10:05)
[2019-08-14] MEDS: PANTOPRAZOLE 40 MG TABLET (FP) PO SCH (10:06)
[2019-08-14] MEDS: TOLNAFTATE 1% CREAM 15 GM TUBE TP SCH ×2 (10:06→21:23)
[2019-08-14] MEDS: AZITHROMYCIN 250 MG TABLET PO SCH (10:07)
[2019-08-14 11:56] LABS: BASO % 0.4 % (0-2.0); EOS % 2.3 % (0-4.5); HEMATOCRIT 40.5 % (32.4-45.2); HEMOGLOBIN 13.5 GM/dL (10.7-15.3); LYMPH % 31.7 % (8-40); MCH 34.8 pg (25.7-33.7); MCHC 33.4 g/dl (32.0-36.0); MEAN CELL VOLUME 104.1 fl (80-96); MEAN PLT VOLUME 9.8 fl (7.5-11.1); MONO % 14.6 % (3.8-10.2); PLATELET COUNT 194 K/MM3 (134-434); RBC 3.89 M/mm3 (3.60-5.2); RDW 14.6 % (11.6-15.6); WHITE BLOOD COUNT 7.6 K/mm3 (4.0-10.0)
[2019-08-14 12:12] LABS: ALBUMIN 3.2 g/dl (3.4-5.0); BILIRUBIN,TOTAL 0.6 mg/dL (0.2-1); BLOOD UREA NITROGEN 27.2 mg/dL (7-18); CALCIUM 9.3 mg/dL (8.5-10.1); CREATININE 0.7 mg/dL (0.55-1.3); TOT PROT 6.9 g/dl (6.4-8.2)
[2019-08-14] MEDS: MIRTAZAPINE 15 MG TABLET (FP) PO SCH (21:18)
[2019-08-14] MEDS: THIAMINE HCL 100 MG TABLET (FP) PO SCH (21:19)
[2019-08-14] MEDS: QUEtiapine FUMARATE 50 MG TABLET PO SCH (21:19)
[2019-08-15] MEDS: GABAPENTIN 300 MG CAPSULE (FP) PO SCH ×3 (06:13→21:27)
[2019-08-15] MEDS: BUPRENORPHINE/NALOXONE 8 MG/2 MG FILM PACKET SL SCH ×3 (06:13→21:27)
[2019-08-15] MEDS: LACTULOSE 20 GM/30 ML UDC (FOR ORAL USE ONLY) PO SCH ×3 (06:13→21:27)
[2019-08-15] MEDS: BACLOFEN 10 MG TABLET (FP) PO SCH ×3 (06:13→21:27)
[2019-08-15 06:54] VITALS: TEMP 98.1
[2019-08-15] MEDS: PRENATAL VITAMINS W/ FOLIC ACID TABLET (FP) PO SCH (09:42)
[2019-08-15] MEDS: PANTOPRAZOLE 40 MG TABLET (FP) PO SCH (09:42)
[2019-08-15] MEDS: DIVALPROEX SODIUM 250 MG TABLET E.C. PO SCH ×2 (09:42→21:27)
[2019-08-15] MEDS: TOLNAFTATE 1% CREAM 15 GM TUBE TP SCH ×2 (09:43→21:26)
[2019-08-15] MEDS: AZITHROMYCIN 250 MG TABLET PO SCH (09:43)
[2019-08-15] MEDS: hydrOXYzine PAMOATE 50 MG CAPSULE (FP) PO PRN ×3 (09:44→18:08)
[2019-08-15] MEDS: NICOTINE 21 MG/24 HOURS TOPICAL PATCH TD SCH (09:44)
[2019-08-15] MEDS: COLLOIDAL OATMEAL 1 BAR EACH TP PRN (09:45)
[2019-08-15] MEDS: IBUPROFEN 400 MG TABLET (FP) PO PRN ×2 (09:45→18:07)
--- NOTE | 2019-08-15 13:07 | DS ---
[facility] Rehab Discharge Summary - [facility] Rehab Discharge Summary Admission Date: 08/03/19 Discharge Date: 08/16/19 - History Present History: Alcohol dependence Pertinent Past History: History of Present Illness: Alcohol use since age 22. States drinking decreased to 2 pints/day. Last drink 2 -3 hours ago. Opiate use since age 23. Was using IV. Started Suboxone 8 mg TID on 07/17/19 and states has remained sober Has a Narcan Kit at home. Cocaine last used 07/17/19 K2 use began at age 35. Last use 07/30/19 Nicotine use since age 13. Now down to 2 cig/day. TEDDY: 0.190 UTox: + BUP HCG: Neg EK04/30/19: PMHx:Weight loss, hx CHF w/ coma (March -April 2018); [facility]neum[facility]. MHHx: Insomnia, Bipolar, depression, schizophrenia. Denies thoughts of harming self or others. States taking Gabapentin, Depakote, Seroquel (Last took meds in June 2019) Longest length of sobriety while in-patient for 2 months. Multiple overdoses. Last August 11, 2019. Seizures r/t alcohol withdrawal. Frequent blackouts. - Discharge Physical Exam Vital Signs: Vital Signs Temperature 98.1 F 08/15/19 06:54 Pulse Rate 98 H 08/15/19 06:54 Respiratory Rate 18 08/15/19 06:54 Blood Pressure 119/80 08/15/19 06:54 O2 Sat by Pulse Oximetry (%) Pertinent Admission Physical Exam Findings: Physical Exam General: No apparent distress HEENTM: PERRLA, edematous Neck: supple, Lungs: clear Heart: s1 s2 ABD: +BS - Treatment Discharge Condition: Outpatient referral accepted (Patient will go to [facility];medically stable for discharge) - Medication Discharge Medications: Ambulatory Orders Brexpiprazole [Rexulti] 1 mg PO DAILY 04/30/19 Divalproex Sodium [Depakote] 250 mg PO BID 04/30/19 Mirtazapine [Remeron -] 7.5 mg PO DAILY 04/30/19 Quetiapine Fumarate [Seroquel] 300 mg PO DAILY 07/31/19 Albuterol Sulfate Inhaler - [Ventolin HFA Inhaler -] 2 puff IH Q4H PRN #1 inhaler 08/15/19 Buprenorphine/Naloxone [Suboxone 8Mg/2Mg Sl Film -] 1 each SL TID 7 Days #21 packet MDD 3 08/15/19 Divalproex [Depakote -] 250 mg PO BID #60 tablet.ec 08/15/19 Gabapentin [Neurontin -] 300 mg PO TID #90 capsule 08/15/19 Mirtazapine [Remeron -] 7.5 mg PO HS #30 tablet 08/15/19 Quetiapine Fumarate [Seroquel -] 50 mg PO HS #30 tablet 08/15/19 - Medication-Assisted Treatment (MAT) Medication-Assisted Treatment (MAT): Yes Medication Prescribed: Buprenorphine ([facility]) - Discharge Instructions Diet, activity, other medical instructions: Diet: as tolerated Activity: as tolerated Other medical instructions: Please follow up with aftercare referral. - Diagnosis (1) Alcohol use disorder Current Visit: Yes Status: Chronic (2) Cannabis dependence Current Visit: Yes Status: Chronic (3) Cocaine dependence Current Visit: Yes Status: Chronic Qualifiers: Substance use status: uncomplicated Qualified Code(s): F14.20 - Cocaine dependence, uncomplicated (4) Opioid dependence Current Visit: Yes Status: Chronic - Follow-up Referral Minutes to complete discharge: 20 - AMA Did Patient Leave Against Medical Advice: No
--- NOTE | 2019-08-15 13:32 | PN ---
[facility] Progress Note Note: Patient is scheduled for discharge tomorrow. Scripts for 30 days supply of medications(Seroquel 50 mg/hs, Gabapentin 300 mg/tid, Depakote 250 mg/bid, Remeron 7.5 mg/hs) will be electronically transmitted to [facility] at [address] [place] [address]
[2019-08-15] MEDS: THIAMINE HCL 100 MG TABLET (FP) PO SCH (21:27)
[2019-08-15] MEDS: QUEtiapine FUMARATE 50 MG TABLET PO SCH (21:27)
[2019-08-15] MEDS: MIRTAZAPINE 15 MG TABLET (FP) PO SCH (21:28)
[2019-08-15] MEDS ORDERED: PT OWN MED DRAWER 7, Y5N ONE (22:58)
[2019-08-16] MEDS: GABAPENTIN 300 MG CAPSULE (FP) PO SCH (06:48)
[2019-08-16] MEDS: BUPRENORPHINE/NALOXONE 8 MG/2 MG FILM PACKET SL SCH (06:48)
[2019-08-16] MEDS: BACLOFEN 10 MG TABLET (FP) PO SCH (06:48)
[2019-08-16] MEDS: LACTULOSE 20 GM/30 ML UDC (FOR ORAL USE ONLY) PO SCH (06:48)
[2019-08-16 07:10] VITALS: BP 113/73; PULSE 99
[2019-08-16] MEDS ORDERED: PT OWN MED DRAWER 7, Y5N ONE (08:37)
[2019-08-16] MEDS: NICOTINE 21 MG/24 HOURS TOPICAL PATCH TD SCH (09:01)
[2019-08-16] MEDS: TOLNAFTATE 1% CREAM 15 GM TUBE TP SCH (09:01)
[2019-08-16] MEDS: DIVALPROEX SODIUM 250 MG TABLET E.C. PO SCH (09:01)
[2019-08-16] MEDS: AZITHROMYCIN 250 MG TABLET PO SCH (09:01)
[2019-08-16] MEDS: PANTOPRAZOLE 40 MG TABLET (FP) PO SCH (09:01)
[2019-08-16] MEDS: PRENATAL VITAMINS W/ FOLIC ACID TABLET (FP) PO SCH (09:01)
== END 2019-08-16 09:16 | disposition home or self-care (01) | DRG 772 ==
LOC: YASAS 12:01 → Y3E 12:03
PROVIDERS: ADMIT Neuromusculoskeletal Medicine & OMM; ATTEND Neuromusculoskeletal Medicine & OMM
PROC: HZ42ZZZ Group Counseling for Substance Abuse Treatment, Cognitive-Behavioral (ICD-10-PCS; principal; 2019-08-03)
DX: F10.20 Alcohol dependence, uncomplicated (principal); F11.20 Opioid dependence, uncomplicated; F14.20 Cocaine dependence, uncomplicated; F16.20 Hallucinogen dependence, uncomplicated; F12.20 Cannabis dependence, uncomplicated; F17.210 Nicotine dependence, cigarettes, uncomplicated; F25.9 Schizoaffective disorder, unspecified; F19.280 Other psychoactive substance dependence with psychoactive substance-induced anxiety disorder; F19.282 Other psychoactive substance dependence with psychoactive substance-induced sleep disorder; F19.24 Other psychoactive substance dependence with psychoactive substance-induced mood disorder; J20.9 Acute bronchitis, unspecified; G47.00 Insomnia, unspecified; B35.3 Tinea pedis; S09.8XXA Other specified injuries of head, initial encounter; W19.XXXA Unspecified fall, initial encounter; Y93.89 Activity, other specified; Y92.238 Other place in hospital as the place of occurrence of the external cause; Y99.8 Other external cause status
CPT/HCPCS: 36415; 71046-TC-FY; 80053; 81003; 82140; 85025; J0475